=== PATIENT | male | born 1985 | race Caucasian/White ===

== ENCOUNTER 2017-04-12 20:44 | Emergency (ER) | payer SELFPAY ==
[~2017-04-12] VITALS: Ht 177.8 cm; Wt 81.6 kg
--- NOTE | 2017-04-12 20:44 | NUR ---
Patient was BIB [facility] [employer] and taken to [facility].
[2017-04-12 20:49] VITALS: BP 121/78
--- NOTE | 2017-04-12 20:54 | NUR ---
31Y/M PT. B[facility] TO ED [facility] PREBOOK. PT. STATES RT. SHOULDER PAIN, DENIES TRAUMA NOR INJURY. NO MEDICAL HX. AAO X4, AMBULATORY WITH STEADY GAIT. RESPIRATIONS TOOM AIR, EVEN AND UNLABORED. C/O RT. SHOULDER PAIN 05/16. VSS, NO S/SX OF DISTRESS AT THIS TIME. ER MD MADE AWARE OF PT. STATUS.
--- NOTE | 2017-04-12 21:16 | NUR ---
Dr. Quarles evaluating patient.
--- NOTE | 2017-04-12 22:02 | NUR ---
Patient discharged with v/s stable. Written and verbal after care instructions given and explained. Patient verbalized understanding. Ambulatory with steady gait. All questions addressed prior to discharge. Advised to follow up with PMD.
--- NOTE | 2017-04-12 22:02 | NUR ---
PATIENT BIB [employer]. PATIENT EXAMINED BY DR. ZAPATA. PATIENT MEDICALLY CLEARED AND RELEASED IN CUSTODY IN STABLE CONDITION. ORIGINAL PRE-BOOK FORM GIVEN TO [employer] [facility].
[2017-04-12 22:06] VITALS: BP 121/78
== END 2017-04-12 22:02 | disposition home or self-care (01) ==
LOC: MED 20:44
DX: Z02.89 Encounter for other administrative examinations (principal)
CPT/HCPCS: 99283